=== PATIENT | male | born 1960 ===

== ENCOUNTER 2021-08-24 00:44 | Outpatient (CLI) | payer MEDICARE, OTHER, SELFPAY ==
[2021-08-24] MEDS: Breeza Beverage 473 ML BTL PO ×2 (11:56→11:57)
[2021-08-24] MEDS: Omnipaque 350 MG/ML 50 ML BTL PO (11:57)
[2021-08-24 11:59] LABS: Abs Immature Grans 0.05 10^3/uL (0.0-0.06); Absolute Basophil Count 0.06 10^3/uL (0.0-0.2); Absolute Eosinophil Count 0.29 10^3/uL (0.0-0.7); Absolute Lymphocyte Count 1.61 10^3/uL (1.2-3.4); Absolute Monocyte Count 0.98 10^3/uL (0.1-0.8); Basophils % 0.5; Eosinophils % 2.3; HGB 13.4 g/dL (13.5-17.5); Immature Grans % 0.4; Lymphocytes % 12.8; MCHC 31.9 % (32.0-36.0); MPV 9.5 fL (8.0-11.0); Monocytes % 7.8; Neutrophils % 76.2; Nucleated RBC 0 %; Platelet Count 514 10^3/uL (130-400); RBC 4.47 10^6/uL (4.36-5.78); RDW 13.2 % (11.8-14.1); RDW-SD 45.4 fL
[2021-08-24 12:13] LABS: Albumin 3.3 g/dL (3.4-5.0); Alkaline Phosphatase 194 U/L (46-116); BUN 17 mg/dL (7-18); Bilirubin, Total 0.6 mg/dL (0.2-1.0); CREATININE 0.9 mg/dL (0.70-1.30); Calcium 9.4 mg/dL (8.5-10.1); Glucose 94 mg/dL (74-106); Sodium 139 mmol/L (136-145)
[2021-08-24 12:14] LABS: ALT 62 U/L (16-63); AST 20 U/L (15-37); Anion Gap 4.3 mmol/L (3-11); CO2 31.7 mmol/L (21.0-32.0); Chloride 103 mmol/L (98-107); Potassium 4.4 mmol/L (3.5-5.1)
--- NOTE | 2021-08-24 13:24 | DI.CT_ITS ---
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 Oral contrast was also administered. COMPARISON: No exams were available for comparison FINDINGS: Lungs are clear. No pleural effusion. No pleural based mass. No mediastinal or hilar adenopathy. No axillary or supraclavicular adenopathy. Tracheobronchial lorna e appears intact. No evidence of pulmonary embolic disease. Unremarkable appearance of thoracic aorta and major branch vessels. There are multiple subtle suboptimally defined lesions in the hepatic parenchyma, the largest is in t he right hepatic lobe posteriorly measures roughly 19 millimeters in diameter period hepatic metastas is not excluded, correlation with multi phasic hepatic MRI or multiphasic hepatic CT recommended for further characterization. Spleen is unremarkable in appearance. Pancreas appears intact. Adrenals appear normal. There is a nonobstructing right renal stone measuring about 8 millimeters in diameter. No additional renal lesion is seen. No evidence of obstruction. Urinary bladder has a markedly thickened wall. Prostate is enlarged. There is a Almanzar catheter the urinary bladder. There is trace free fluid in the pelvis. Abdominal aorta and major visceral branches appear intact. No focal bowel pathology. Appendix is normal. No evidence of diverticulitis. No abdominal or pelvic adenopathy. No significant abdominal wall hernia. There is a mixed lytic/sclerotic lesion of the vertebral body of T11. There is a right iliac bone le brandon adjacent to SI joint which is a mixed blastic and lytic lesion. 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 IMPRESSION: Indeterminate hepatic lesions in a patient with known prostate carcinoma, correlation with multiphasi c MRI or CT of the liver recommended. Multiple presumed skeletal metastases are identified. No other evidence of metastatic disease. RADIATION DOSE DELIVERED: 1,488.58mGy.cm Total DLP 1,488.58mGy.cm Total DLP CTDIvol RADIATION OPTIMIZATION: All CT scans at this facility use at least one of these dose optimization te chniques: automated exposure control; mA and/or kV adjustment per patient size (includes targeted exa ms where dose is matched to clinical indication); or iterative reconstruction.
[2021-08-24] MEDS: Omnipaque 350 MG/ML 100 ML BTL IJ (13:27)
[2021-08-24] MEDS: Normal Saline - Diluent 50 ML VIAL IV (13:29)
[2021-08-24] MEDS: Normal Saline Flush 10 ML SYR IVP (13:30)
[2021-08-27 14:59] LABS: PSA, Ultrasensitive 6.5 ng/mL (<= 4.5)
[2021-08-29 00:23] LABS: Testosterone, Total <7.0 ng/dL (240-950)
== END 2021-08-24 01:04 ==
PROVIDERS: Visit Provider Internal Medicine
DX: C61 Malignant neoplasm of prostate (principal); C79.51 Secondary malignant neoplasm of bone; K76.9 Liver disease, unspecified
CPT/HCPCS: 74177; 80053; 84153; 84403; 71260; 85025; J3490; Q9967

== ENCOUNTER 2021-10-09 14:04 | Outpatient (RCR) | payer MEDICARE, SELFPAY ==
[2021-10-09 14:25] LABS: Abs Immature Grans 0.02 10^3/uL (0.0-0.06); Absolute Basophil Count 0.05 10^3/uL (0.0-0.2); Absolute Eosinophil Count 0.11 10^3/uL (0.0-0.7); Absolute Lymphocyte Count 1.23 10^3/uL (1.2-3.4); Absolute Monocyte Count 0.37 10^3/uL (0.1-0.8); Absolute Neutrophil Count 4.08 10^3/uL (1.2-6.7); Basophils % 0.9; Eosinophils % 1.9; HCT 44.3 % (40.0-50.0); HGB 13.9 g/dL (13.5-17.5); Immature Grans % 0.3; MCH 30.2 pg (27.0-33.0); MCHC 31.4 % (32.0-36.0); MCV 96.3 fL (80-95); MPV 10.5 fL (8.0-11.0); Monocytes % 6.3; Neutrophils % 69.6; Nucleated RBC 0 %; Platelet Count 295 10^3/uL (130-400); RDW-SD 53.5 fL; WBC 5.86 10^3/uL (4.4-10.8)
[2021-10-09 14:38] LABS: ALT 82 U/L (16-63); AST 37 U/L (15-37); Albumin 3.9 g/dL (3.4-5.0); Alkaline Phosphatase 106 U/L (46-116); Anion Gap 6.9 mmol/L (3-11); BUN 19 mg/dL (7-18); Bilirubin, Total 0.4 mg/dL (0.2-1.0); CO2 31.1 mmol/L (21.0-32.0); CREATININE 0.9 mg/dL (0.70-1.30); Chloride 104 mmol/L (98-107); Glucose 92 mg/dL (74-106); Potassium 3.5 mmol/L (3.5-5.1); Sodium 142 mmol/L (136-145); Total Protein 7.8 g/dL (6.4-8.2)
[2021-10-10 15:15] LABS: PSA, Ultrasensitive 1.6 ng/mL (<= 4.5)
[2021-10-12 10:30] LABS: Testosterone, Total <7.0 ng/dL (240-950)
== END 2021-10-12 23:59 | disposition home or self-care (01) ==
LOC: INF 14:04
PROVIDERS: Visit Provider Internal Medicine
DX: C61 Malignant neoplasm of prostate (principal); C79.51 Secondary malignant neoplasm of bone
CPT/HCPCS: 36415; 80053; 84153; 84403; 85025

== ENCOUNTER 2021-11-06 04:01 | Outpatient (CLI) | payer MEDICARE, SELFPAY ==
[2021-11-06 10:40] LABS: Abs Immature Grans 0.02 10^3/uL (0.0-0.06); Absolute Basophil Count 0.02 10^3/uL (0.0-0.2); Absolute Eosinophil Count 0.09 10^3/uL (0.0-0.7); Absolute Lymphocyte Count 1.05 10^3/uL (1.2-3.4); Absolute Monocyte Count 0.36 10^3/uL (0.1-0.8); Basophils % 0.5; HCT 46.1 % (40.0-50.0); HGB 14.7 g/dL (13.5-17.5); Immature Grans % 0.5; Lymphocytes % 23.6; MCH 30.4 pg (27.0-33.0); MCHC 31.9 % (32.0-36.0); MCV 95.2 fL (80-95); MPV 10.6 fL (8.0-11.0); Monocytes % 8.1; Neutrophils % 65.3; Nucleated RBC 0 %; Platelet Count 256 10^3/uL (130-400); RBC 4.84 10^6/uL (4.36-5.78); RDW 13.8 % (11.8-14.1); WBC 4.44 10^3/uL (4.4-10.8)
[2021-11-06 11:28] LABS: ALT 55 U/L (16-63); AST 21 U/L (15-37); Albumin 3.9 g/dL (3.4-5.0); Alkaline Phosphatase 96 U/L (46-116); Anion Gap 7.1 mmol/L (3-11); BUN 19 mg/dL (7-18); Bilirubin, Total 0.6 mg/dL (0.2-1.0); CO2 31.9 mmol/L (21.0-32.0); CREATININE 0.8 mg/dL (0.70-1.30); Calcium 9.1 mg/dL (8.5-10.1); Chloride 101 mmol/L (98-107); Glucose 114 mg/dL (74-106); Potassium 3.8 mmol/L (3.5-5.1); Sodium 140 mmol/L (136-145); Total Protein 7.1 g/dL (6.4-8.2)
[2021-11-07 13:43] LABS: PSA, Ultrasensitive 0.97 ng/mL (<= 4.5)
[2021-11-08 12:34] LABS: Testosterone, Total <7.0 ng/dL (240-950)
== END 2021-11-06 04:02 | disposition home or self-care (01) ==
LOC: LBO 04:01
PROVIDERS: Visit Provider Internal Medicine
DX: C61 Malignant neoplasm of prostate (principal); C79.51 Secondary malignant neoplasm of bone
CPT/HCPCS: 36415; 80053; 84153; 84403; 85025

== ENCOUNTER 2022-01-22 03:02 | Outpatient (CLI) | payer MEDICARE, SELFPAY | END 2022-01-22 03:03 | disposition home or self-care (01) | PROVIDERS: Visit Provider Internal Medicine ==